=== PATIENT | female | born 1970 | race Caucasian/White ===

== ENCOUNTER → 2020-03-29 | Outpatient (REF) | payer OTHER | LOC: M SFHCPLAZ 11:20 | PROVIDERS: ATTEND Nurse Practitioner Family | DX: Z12.4 Encounter for screening for malignant neoplasm of cervix (principal) ==

== ENCOUNTER → 2020-03-29 | Outpatient (CLI) | payer OTHER ==
--- NOTE | 2020-04-14 14:36 | REPMRS ---
Patient History The patient states she had a clinical breast exam in 03/2020. Patient had first child at age 31. Digital Woman Screen Mammo: March 29, 2020 - Exam #: [id number] Bilateral CC and MLO view(s) were taken. Technologist: Johanna Garcia, Technologist Prior study comparison: 2018, bilateral digital mammo screening bilat, performed at [facility]. FINDINGS: The breast tissue is heterogeneously dense. This may lower the sensitivity of mammography. The Volpara volumetric breast density category is: C. There is a moderate amount of heterogeneously dense fibroglandular tissue which is fairly symmetric. There is an 8 mm neodensity in the upper outer quadrant of the right breast which merits further evaluation. It is only visble on the MLO projection. There is no other interval development of dominant mass, architectural distortion, or grouped microcalcification typical of malignancy. There has been no other change in the appearance of the mammogram from the prior studies. 3-D tomosynthesis shows no additional findings. Report was delayed due to a protracted computer network disruption experienced by this facility. Assessment: BI-RADS/ACR category 0 mammogram, Incomplete: Need additional imaging evaluation and/or prior mammograms for comparison. Recommendation Ultrasound and special view mammogram of the right breast. This patient's Lifetime Breast Cancer RIsk is estimated at 11.8 %. This mammogram was interpreted with the aid of an FDA-approved computer-aided dectection system. Electronically Signed By: Jorge Alberto Thurman MD 04/14/20 [id number]
== END ==
LOC: M WHC 06:58
PROVIDERS: ATTEND Nurse Practitioner Family
DX: Z12.31 Encounter for screening mammogram for malignant neoplasm of breast (principal); R92.8 Other abnormal and inconclusive findings on diagnostic imaging of breast

== ENCOUNTER → 2020-04-19 | Outpatient (CLI) | payer OTHER ==
--- NOTE | 2020-05-18 10:37 | REP ---
DIAGNOSTIC MAMMOGRAM OF THE RIGHT BREAST WITH RIGHT BREAST ULTRASOUND FINDINGS: Multiple spot compression views were performed of the right breast in various projections including tomographic sequences. Comparison made with prior study of 03/29/2020 as well as other prior exams. As seen on the recent 03/29/2020 exam, there is a smoothly marginated 8 mm nodule far posterior in the upper outer quadrant of the right breast. Real-time sonographic evaluation of the posterior right upper outer quadrant demonstrates an 8 mm cyst with mild debris which is benign. No suspicious nodule is seen sonographically. IMPRESSION: ACR 2 benign. Smoothly marginated nodule posteriorly in the upper outer quadrant of the right breast measures 8 mm in diameter and corresponds to a benign cyst by ultrasound. Follow up mammogram recommended in one year. Send letter 1. BRITTANY
== END ==
LOC: M WHC 09:53
PROVIDERS: ATTEND Nurse Practitioner Family
DX: R92.2 Inconclusive mammogram (principal)

== ENCOUNTER → 2021-07-06 | Outpatient (REF) | payer OTHER | LOC: M SFHCWAGY 13:05 | PROVIDERS: ATTEND Nurse Practitioner Women's Health | DX: Z12.4 Encounter for screening for malignant neoplasm of cervix (principal) ==

== ENCOUNTER → 2021-07-06 | Outpatient (CLI) | payer OTHER ==
--- NOTE | 2021-07-06 15:07 | REPMRS ---
Patient History The patient states she had a clinical breast exam in June 2021. Patient had first child at age 31. No known family history of cancer. 10 lb unintentional weight gain. Pt denied . Patient states no breast complaints today. Patient has signed MRS History Sheet. Digital Woman Screen Mammo: July 06, 2021 - Exam #: [id number] Bilateral CC and MLO view(s) were taken. Technologist: Giovanna Ruiz RT Prior study comparison: April 19, 2020, right breast diagnostic unilateral mammo performed at [facility]. March 29, 2020, bilateral digital woman screen mammo performed at [facility]. FINDINGS: The breast tissue is heterogeneously dense. This may lower the sensitivity of mammography. Screening. Digital screening (2D) mammography was performed bilaterally in the CC and MLO projections. Additionally, breast tomosynthesis (3D mammography) was performed bilaterally in the CC and MLO projections. Todays exam was compared to the prior exam/exams. By history, the patient has no complaints of a palpable breast abnormality or other significant breast complaints. The Volpara volumetric breast density category is C, the breasts are heterogenously dense which may obscure small masses. The breasts are unchanged in size and shape. There are no zuly-soft tissue densities or spiculated masses. There is no internal architectural distortion. There are no suspicious zuly-calcific clusters. Skin thickening or nipple retraction is not present. IMPRESSION: BI-RADS Category 2- Benign Findings. There is no evidence of malignant alteration of the breasts. Followup examination recommended in one year. The lifetime Tyrer-Cuzick score is 11.9% This mammogram was read with the assistance [facility],an FDA approved computer aided detection system for mammography. Due to the density of the breasts or Tyrer Cuzick score of 20% or greater, MRI/whole breast screening ultrasound is warranted. Negative x-ray reports should not delay surgical consultation if a dominant or clinically suspicious mass is present. Not all breast cancers can be identified by mammography. Therefore, we recommend that you continue to perform regular breast self-examination and physical examination and then promptly contact your physician of any concerns or changes. Adenosis and dense breasts may obscure an underlying neoplasm. No significant changes when compared with prior studies. Assessment: BI-RADS/ACR category 2 mammogram. Benign Findings. Recommendation Routine screening mammogram of both breasts in 1 year. Electronically Signed By: Michael Garcia MD 07/06/21 [id number]
== END ==
LOC: M WHC 10:34
PROVIDERS: ATTEND Nurse Practitioner Women's Health
DX: Z12.31 Encounter for screening mammogram for malignant neoplasm of breast (principal)

== ENCOUNTER → 2024-07-27 | Outpatient (REF) | payer OTHER, BC | LOC: M SFHCDERM 07:58 | PROVIDERS: ATTEND Physician Assistant | DX: D24.1 Benign neoplasm of right breast (principal) ==